=== PATIENT | male | born 1990 | race Caucasian/White ===

== ENCOUNTER 2021-04-09 17:11 | Emergency (ER) | payer MEDICAID ==
[~2021-04-09] VITALS: Ht 175.3 cm; Wt 118.0 kg
[2021-04-09 17:20] VITALS: BP 151/89
[2021-04-09] MEDS ORDERED: BUPR100T13 PO (17:24)
[2021-04-09] MEDS ORDERED: RISP1TAB97 PO (17:24)
[2021-04-09] MEDS ORDERED: TETANUS, DIPHTHERIA, PERTUSSIS VAC/PF 0.5ML (>10YR OLD) IM ONE (17:30)
[2021-04-09] MEDS ORDERED: ACETAMINOPHEN 325MG TABLET PO ONE ×2 (17:30→18:30)
[2021-04-09] MEDS ORDERED: LIDOCAINE HCL 1% 20ML VIAL (Pyxis) INJ INFIL ONE (18:30)
[2021-04-09] MEDS ORDERED: BACITRACIN ZINC OINT UDPKT TOP ONE (18:30)
[2021-04-09] MEDS ORDERED: LIDOCAINE HCL/PF 1% 10 MG/ML 5ML VIAL INFIL ONE (18:30)
== END 2021-04-09 20:31 | disposition home or self-care (01) ==
LOC: ER 17:11
DX: S61.210A Laceration without foreign body of right index finger without damage to nail, initial encounter (principal); Y04.2XXA Assault by strike against or bumped into by another person, initial encounter; Y93.89 Activity, other specified; Y92.89 Other specified places as the place of occurrence of the external cause; F20.9 Schizophrenia, unspecified
CPT/HCPCS: 12001; 73140; 90471; 90715; 99284; J3490